=== PATIENT | male | born 1985 | race Two or more races ===

== ENCOUNTER 2019-03-02 22:46 | Emergency (ER) | payer OTHER ==
[~2019-03-02] VITALS: Ht 165.1 cm; Wt 68.9 kg
[2019-03-02 22:58] VITALS: BP 148/99
--- NOTE | 2019-03-02 22:58 | NUR ---
ED Nurse Note: Patient walked into ER from home d/t left knuckle laceration that occurred at work, no bleeding during assessment. Patient stated he hit his hand on glass. Pain 8/10. Patient aao x 4 and ambulatory. No acute distress noted.
--- NOTE | 2019-03-02 22:59 | NUR ---
ED Nurse Note: ERMD at bedside
--- NOTE | 2019-03-02 23:01 | Emergency Room Report ---
History of Present Illness General Chief Complaint: Laceration Source: Patient Present Illness HPI 33-year-old male who is right-hand dominant. He presents with complaint of laceration to the left hand. 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 The weighted drop some glass and it broke and 1 of the shard of glass step and caused a laceration to the dorsum of his left hand. No other injury. This occurred a few hours ago. No nausea no vomiting but no fever chills. Bleeding controlled. No other complaint. Tetanus is up-to-date. Allergies: Coded Allergies: No Known Allergies (Unverified , 03/02/19) Patient History Past Medical History: see triage record, old chart reviewed Past Surgical History: none Pertinent Family History: none Social History: Denies: smoking Immunizations: other Reviewed Nursing Documentation: PMH: Agreed; PSxH: Agreed Nursing Documentation-PMH Past Medical History: No Stated History Review of Systems Eye: Denies: eye pain, blurred vision ENT: Denies: ear pain, nose congestion, throat swelling Respiratory: Denies: cough, shortness of breath Cardiovascular: Denies: chest pain, palpitations Gastrointestinal: Denies: abdominal pain, diarrhea, nausea, vomiting Musculoskeletal: Denies: back pain, joint pain Skin: Denies: rash Neurological: Denies: headache, numbness Endocrine: Denies: increased thirst, increased urine Hematologic/Lymphatic: Denies: easy bruising All Other Systems: negative except mentioned in HPI Physical Exam Vital Signs Date Time Temp Pulse Resp B/P (MAP) Pulse Ox O2 Delivery O2 Flow Rate FiO2 03/02/19 22:51 98.8 88 14 156/102 (120) 97 Room Air Vitals with high blood pressure Sp02 EP Interpretation: reviewed, normal General Appearance: well appearing, no apparent distress, alert Head: normocephalic, atraumatic Eyes: bilateral eye PERRL, bilateral eye EOMI ENT: hearing grossly normal, normal pharynx Neck: full range of motion, supple, no meningismus Respiratory: chest non-tender, lungs clear, normal breath sounds Cardiovascular #1: regular rate, rhythm, no murmur Gastrointestinal: normal bowel sounds, non tender, no mass, no organomegaly, no bruit, non-distended Musculoskeletal: back normal, normal range of motion, gait/station normal, other - Left hand: There is a 1 cm laceration between the third and fourth MCP joint or the skin. No active bleeding. Tenderness to palpation. Full range of motion of the MCP joints however. Psychiatric: mood/affect normal Procedures Laceration/Wound Repair Laceration/Wound Repair : Consent: Verbal Wound Location: upper extremity Wound's Depth, Shape: superficial, linear Wound Length (cm): 1 Wound Explored: clean Irrigated w/ Saline (ccs): 500 Betadine Prep?: Yes Anesthesia: 1% Lidocaine Volume Anesthetic (ccs): 2 Wound Repaired With: sutures Suture Size/Type: 6:0, proline Number of Sutures: 2 Patient Tolerated: Well Complications: None Medical Decision Making Diagnostic Impression: Primary Impression: Laceration ER Course Patient with laceration to his left hand. No foreign body. No tendon laceration. Low risk for infection. Will discharge home. Last Vital Signs Date Time Temp Pulse Resp B/P (MAP) Pulse Ox O2 Delivery O2 Flow Rate FiO2 03/02/19 22:51 98.8 88 14 156/102 (120) 97 Room Air Status: improved Disposition: HOME, SELF-CARE Condition: Stable Scripts No Active Prescriptions or Reported Meds Patient Instructions: Laceration Care, Adult Additional Instructions: Sutures out in 7 days. Follow-up with your employer in 1 to 2 days. Wound clean. Clean first with hydroperoxide and apply antibiotic ointment. Return if symptoms worsen. Yared Fernando MD Mar 02, 2019 23:01
--- NOTE | 2019-03-02 23:06 | NUR ---
ED Nurse Note: ERMD at bedside.
--- NOTE | 2019-03-02 23:21 | NUR ---
ER DISCHARGE NOTE: Patient cleared for discharge per ER provider. Patient stable and ambulatory upon discharge. All medical devices and ID band removed. Patient given DC instructions, verbalized understanding. Patient took all belongings and is stable upon discharge.
[2019-03-02 23:22] VITALS: BP 138/85
== END 2019-03-02 23:21 | disposition home or self-care (01) ==
LOC: EMR 23:15
DX: S61.412A Laceration without foreign body of left hand, initial encounter (principal); W25.XXXA Contact with sharp glass, initial encounter; Y92.9 Unspecified place or not applicable; Y99.0 Civilian activity done for income or pay
CPT/HCPCS: 99283